=== PATIENT | male | born 1950 | race African-American/Black ===

== ENCOUNTER 2018-10-02 23:55 | Inpatient (IN) | payer MEDICARE, MEDICAID, OTHER ==
[~2018-10-02] VITALS: Ht 167.6 cm; Wt 70.8 kg
[2018-10-03] MEDS ORDERED: METHYLPREDNISOLONE SOD SUCC 125 MG/2 ML VIAL IV STA (00:27)
[2018-10-03] MEDS ORDERED: IPRATROPIUM BROMIDE (0.02%) 0.5MG/2.5ML NEB HHN STA (00:27)
[2018-10-03] MEDS ORDERED: MAGNESIUM 2 G PREMIX 50 ML IV ONE (00:30)
[2018-10-03] MEDS: ALBUTEROL (0.083%) 2.5MG/3ML NEB HHN SCH ×3 (00:45→01:45)
[2018-10-03 01:02] LABS: CHLORIDE 109 mEq/L (98-107); HEMATOCRIT. 37.7 % (42.0-52.0); HEMOGLOBIN. 12.2 g/dL (14.0-18.0); MEAN CORPUSCULAR HEMOGLOBIN 29.4 pg (28.0-32.0); MEAN CORPUSCULAR VOLUME 90.9 fL (80.0-94.0); PLATELET 271 x1000/uL (130-400); RED BLOOD CELL COUNT 4.15 mill/uL (4.7-6.1); RED CELL DISTRIBUTION WIDTH 17.1 % (11.6-14.6)
[2018-10-03 02:48] LABS: PLATELET ESTIMATE NORMAL
[2018-10-03 04:30] VITALS: BP 130/78
[2018-10-03] MEDS ORDERED: ACETAMINOPHEN 325MG TABLET PO PRN (06:00)
[2018-10-03] MEDS ORDERED: HYDROCODONE/ACETAMINOPHEN 5/325MG TABLET PO PRN (06:00)
[2018-10-03] MEDS ORDERED: IPRATROPIUM/ALBUTEROL 0.5-3(2.5)MG/3ML NEB HHN ONE (06:00)
[2018-10-03] MEDS ORDERED: IPRATROPIUM/ALBUTEROL 0.5-3(2.5)MG/3ML NEB HHN PRN (06:00)
[2018-10-03] MEDS: METHYLPREDNISOLONE SOD SUCC 40 MG/ML VIAL IV SCH ×3 (06:15→22:20)
[2018-10-03 06:44] LABS: HEMATOCRIT. 35.3 % (42.0-52.0); HEMOGLOBIN. 11.6 g/dL (14.0-18.0); MEAN CORPUSCULAR HEMOGLOBIN 29.7 pg (28.0-32.0); MEAN CORPUSCULAR VOLUME 90.5 fL (80.0-94.0); MEAN PLATELET VOLUME 7.8 fl (7.4-10.4); PLATELET 287 x1000/uL (130-400); RED CELL DISTRIBUTION WIDTH 16.6 % (11.6-14.6)
[2018-10-03] MEDS: IPRATROPIUM/ALBUTEROL 0.5-3(2.5)MG/3ML NEB HHN SCH ×4 (07:24→20:19)
[2018-10-03 07:33] LABS: CHLORIDE 109 mEq/L (98-107)
[2018-10-03 08:00] VITALS: BP 139/75
[2018-10-03] MEDS: ENOXAPARIN 40MG/0.4ML SYR SUBCUT SCH (08:56)
[2018-10-03 12:00] VITALS: BP 135/80
[2018-10-03 12:44] LABS: PLATELET ESTIMATE NORMAL
[2018-10-03 15:53] VITALS: BP 112/73
[2018-10-03 18:00] VITALS: BP 154/91
[2018-10-03 20:00] VITALS: BP 151/96
[2018-10-04] VITALS (7 sets, daily range): BP systolic 126–155; BP diastolic 73–90
[2018-10-04] MEDS: IPRATROPIUM/ALBUTEROL 0.5-3(2.5)MG/3ML NEB HHN SCH ×6 (00:16→20:31)
[2018-10-04] MEDS: METHYLPREDNISOLONE SOD SUCC 40 MG/ML VIAL IV SCH ×3 (06:13→21:20)
[2018-10-04] MEDS: ENOXAPARIN 40MG/0.4ML SYR SUBCUT SCH (09:27)
[2018-10-04] MEDS ORDERED: METHOCARBAMOL 500MG TABLET PO PRN (13:00)
[2018-10-05] MEDS: IPRATROPIUM/ALBUTEROL 0.5-3(2.5)MG/3ML NEB HHN SCH ×4 (00:33→12:03)
[2018-10-05 04:00] VITALS: BP 149/75
[2018-10-05] MEDS: METHYLPREDNISOLONE SOD SUCC 40 MG/ML VIAL IV SCH ×2 (05:51→13:32)
[2018-10-05 08:00] VITALS: BP 140/84
[2018-10-05] MEDS: ENOXAPARIN 40MG/0.4ML SYR SUBCUT SCH (08:32)
[2018-10-05 11:03] VITALS: BP 145/89
[2018-10-05 12:00] VITALS: BP 155/88
== END 2018-10-05 14:48 | disposition home or self-care (01) | DRG 202 ==
LOC: ER 23:55 → 7WST 10-03 03:43 → EDBEDREQ 10-03 03:45 → EDBEDREQTM 10-03 03:45 → ENRESERV 10-03 04:01
PROVIDERS: ADMIT Internal Medicine; ATTEND Internal Medicine
DX: J45.901 Unspecified asthma with (acute) exacerbation (principal); J44.1 Chronic obstructive pulmonary disease with (acute) exacerbation; I11.0 Hypertensive heart disease with heart failure; I50.9 Heart failure, unspecified; Z87.891 Personal history of nicotine dependence
CPT/HCPCS: 36415; 71045; 80048; 83880; 84484; 93005; 94640; 96365; 96375; 99285; J1650; J2920; J2930; J3475; J7611; J7620